=== PATIENT | female | born 1975 | race Caucasian/White ===

== ENCOUNTER 2022-09-25 11:57 | Emergency (ER) | payer OTHER ==
[~2022-09-25] VITALS: Ht 165.1 cm; Wt 74.8 kg
[2022-09-25 11:59] VITALS: BP 109/69
[2022-09-25] MEDS ORDERED: ORPHENADRINE CITRATE 30 MG/ML ML IVP ONE (12:30)
[2022-09-25] MEDS ORDERED: KETOROLAC 15MG/ML VIAL (15MG/ML) IV ONE (12:30)
[2022-09-25] MEDS ORDERED: IBUP-2070 PO (13:32)
[2022-09-25] MEDS ORDERED: METH-812 PO (13:32)
== END 2022-09-25 13:51 | disposition home or self-care (01) ==
LOC: EDH 11:57
DX: S33.5XXA Sprain of ligaments of lumbar spine, initial encounter (principal); Z79.1 Long term (current) use of non-steroidal anti-inflammatories (NSAID); Z79.899 Other long term (current) drug therapy; X50.1XXA Overexertion from prolonged static or awkward postures, initial encounter; Y93.89 Activity, other specified; Y92.89 Other specified places as the place of occurrence of the external cause; Y99.8 Other external cause status
CPT/HCPCS: 99284; 96374; 96375; 72100; J1885